=== PATIENT | female | born 1995 | race Caucasian/White ===

== ENCOUNTER 2021-03-15 23:15 | Emergency (ER) | payer OTHER ==
[~2021-03-15] VITALS: Ht 162.6 cm; Wt 124.7 kg
[2021-03-15 23:23] VITALS: BP 109/66
--- NOTE | 2021-03-15 23:33 | NUR ---
PT AMBULTED TO [facility] FOR BLOOD DRAW.
--- NOTE | 2021-03-15 23:35 | NUR ---
CHEST PAIN THAT STARTED TUESDAY 03/13 WITH "TINGLING" TO LEFT SIDE OF BODY. COVID + APPROX. 2 WEEKS AGO, AND TESTED NEGATIVE YESTERDAY 03/14/21. MED HX: DENIES ALLERGIES: NKA
--- NOTE | 2021-03-15 23:38 | NUR ---
PT AMBULATED TO BED 09.
--- NOTE | 2021-03-15 23:40 | NUR ---
PT PLACED IN GOWN.
--- NOTE | 2021-03-15 23:46 | NUR ---
PT PLACED ON PET RESORT CONCIERGE.
[2021-03-15 23:47] LABS: BASOPHILS # (AUTO) 0.3 K/uL (0.00-0.22); BASOPHILS % (AUTO) 3.8 % (0.0-2.0); EOSINOPHILS # (AUTO) 0.2 K/uL (0-0.4); EOSINOPHILS % (AUTO) 2.3 % (0.0-4.0); HEMOGLOBIN 13.2 g/dL (12.0-16.0); LYMPHOCYTES # (AUTO) 2.8 K/uL (2.5-16.5); LYMPHOCYTES % (AUTO) 30.9 % (20.5-51.1); MEAN CORPUSCULAR HEMOGLOBIN 28 pg (27-31); MEAN CORPUSCULAR HGB CONC 33 g/dL (33-37); MEAN CORPUSCULAR VOLUME 84.6 fL (80-94); MONOCYTES # (AUTO) 0.3 K/uL (0.8-1.0); MONOCYTES % (AUTO) 3.7 % (1.7-9.3); NEUTROPHILS # (AUTO) 5.3 K/uL (1.8-7.7); NEUTROPHILS % (AUTO) 59.3 % (42.2-75.2); PLATELET COUNT (AUTO) 272 K/uL (140-450); RED BLOOD CELL COUNT(AUTO) 4.73 MIL/uL (4.20-5.40); RED CELL DISTRIBUTION WIDTH 13.6 % (11.6-13.7); WHITE BLOOD COUNT (AUTO) 8.9 K/uL (4.8-10.8)
[2021-03-16 00:04] LABS: ALBUMIN 3.4 g/dL (3.4-5.0); ANION GAP 7.1 (8-16); CARBON DIOXIDE 30.8 mmol/L (21-32); CREATININE 0.9 mg/dL (0.6-1.3); POTASSIUM 3.9 mmol/L (3.5-5.1); TOTAL BILIRUBIN 0.2 mg/dL (0.0-1.0)
[2021-03-16 00:05] LABS: CHOL/HDL RATIO 6.8 (1-4.5)
[2021-03-16] MEDS ORDERED: ATOR80TA27 PO (01:01)
--- NOTE | 2021-03-16 01:05 | NUR ---
PT DISCHARGED BY DR. HILARIO. ALL DISCHARGE INSTRUCTIONS AND MEDICATION ADMINISTRATION. RX OF ATORVASTATIN GIVEN. PT LEFT FACILITY IN STABLE CONDITION.
== END 2021-03-16 01:05 | disposition home or self-care (01) ==
LOC: MED 23:15
DX: R07.89 Other chest pain (principal); E78.2 Mixed hyperlipidemia; Z79.899 Other long term (current) drug therapy
CPT/HCPCS: 36415; 71045; 80053; 83880; 84484; 85025; 85379; 93005; 99285; Q0092